=== PATIENT | male | born 2000 | race Caucasian/White ===

== ENCOUNTER 2018-10-25 14:22 | Emergency (ER) | payer SELFPAY ==
[~2018-10-25] VITALS: Ht 170.2 cm; Wt 56.2 kg
[2018-10-25 14:26] VITALS: BP 128/75; Ht 170.2 cm; Wt 56.2 kg
== END 2018-10-25 15:34 | disposition home or self-care (01) ==
LOC: ED 14:22
DX: S13.9XXA Sprain of joints and ligaments of unspecified parts of neck, initial encounter (principal); S23.3XXA Sprain of ligaments of thoracic spine, initial encounter; S20.212A Contusion of left front wall of thorax, initial encounter; S60.512A Abrasion of left hand, initial encounter; V49.9XXA Car occupant (driver) (passenger) injured in unspecified traffic accident, initial encounter; Y93.I9 Activity, other involving external motion; Y92.413 State road as the place of occurrence of the external cause; Y99.8 Other external cause status
CPT/HCPCS: Q0092